=== PATIENT | male | born 1960 | race Caucasian/White ===

== ENCOUNTER 2022-12-17 08:22 | Day surgery (SDC) | payer BC ==
[2022-12-12 15:30] VITALS: BMI 26.7
[2022-12-17 09:48] VITALS: RESP 16; TEMP 97.3
[2022-12-17 09:57] VITALS: BP 107/67; PULSE 67
== END 2022-12-17 10:15 | disposition home or self-care (01) ==
LOC: FASU-ENDO 08:22
PROVIDERS: ATTEND Internal Medicine Gastroenterology
PROC: 0DBN8ZX Excision of Sigmoid Colon, Via Natural or Artificial Opening Endoscopic, Diagnostic (ICD-10-PCS; principal; 2022-12-17 09:18)
DX: Z12.11 Encounter for screening for malignant neoplasm of colon (principal); K63.5 Polyp of colon
CPT/HCPCS: 88305-TC